=== PATIENT | male | born 1990 | race Caucasian/White ===

== ENCOUNTER 2020-07-12 19:55 | Emergency (ER) | payer SELFPAY ==
[~2020-07-12] VITALS: Ht 165.1 cm; Wt 54.9 kg
--- NOTE | 2020-07-12 19:55 | NUR ---
PT [facility], PREBOOK. TAKEN TO BED 5. [place] [employer] AT BEDSIDE
--- NOTE | 2020-07-12 19:59 | NUR ---
Dr. Diego examining patient.
[2020-07-12 20:02] VITALS: BP 142/92
--- NOTE | 2020-07-12 20:14 | NUR ---
PT TAKEN TO X-RAY VIA WHEELCHAIR
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
[2020-07-12] MEDS: KETOROLAC 15 MG/ML VIAL IVP ONE (20:36)
[2020-07-12 20:55] VITALS: BP 142/92
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
== END 2020-07-12 20:55 ==
LOC: MED 19:55 → EDBD 19:55 → MED 20:55
DX: S39.012A Strain of muscle, fascia and tendon of lower back, initial encounter (principal); M25.552 Pain in left hip; F10.20 Alcohol dependence, uncomplicated; V89.2XXA Person injured in unspecified motor-vehicle accident, traffic, initial encounter; Y93.89 Activity, other specified; Y92.89 Other specified places as the place of occurrence of the external cause; Y99.8 Other external cause status
CPT/HCPCS: 72110; 72170; 96374; 99284; J1885

== ENCOUNTER 2021-10-23 06:05 | Emergency (ER) | payer SELFPAY ==
[~2021-10-23] VITALS: Ht 165.1 cm; Wt 59.9 kg
[2021-10-23 06:14] VITALS: BP 138/77
--- NOTE | 2021-10-23 06:14 | NUR ---
PT TO A/W TENT FOR EVALUTION.
--- NOTE | 2021-10-23 06:45 | NUR ---
Dr. Landeros examining patient.
[2021-10-23 13:46] VITALS: BP 138/77
--- NOTE | 2021-10-23 13:46 | NUR ---
pt discharged without paperwork.
== END 2021-10-23 13:46 | disposition home or self-care (01) ==
LOC: MED 06:05
DX: B34.9 Viral infection, unspecified (principal); Z20.822 Contact with and (suspected) exposure to COVID-19
CPT/HCPCS: 99281

== ENCOUNTER 2022-07-23 15:03 | Emergency (ER) | payer MEDICAID, OTHER ==
[~2022-07-23] VITALS: Ht 162.6 cm; Wt 56.7 kg
[2022-07-23 15:09] VITALS: BP 135/84
[2022-07-23] MEDS ORDERED: FLUORESCEIN OPTH STRIP 1 MG OP ONE (16:00)
[2022-07-23] MEDS ORDERED: TETRACAINE HCL/PF 0.5% OPTH 4 ML BTL OP ONE (16:00)
[2022-07-23] MEDS ORDERED: HYDROcodone/APAP 5/325 MG 1 TAB TAB PO ONE (16:00)
--- NOTE | 2022-07-23 18:58 | NUR ---
PT AMB TO ER BED 9
[2022-07-23 19:12] LABS: EOSINOPHILS % (AUTO) 0.6 % (0.0-4.0); HEMATOCRIT 32.4 % (36-52); HEMOGLOBIN 10.7 g/dL (12.0-18.0); LYMPHOCYTES # (AUTO) 1.2 K/uL (2.0-11.5); LYMPHOCYTES % (AUTO) 28.3 % (20.5-51.1); MEAN CORPUSCULAR HEMOGLOBIN 27 pg (27-31); MEAN CORPUSCULAR HGB CONC 33 g/dL (33-37); MEAN CORPUSCULAR VOLUME 80.7 fL (80-94); MONOCYTES # (AUTO) 0.5 K/uL (0.8-1.0); MONOCYTES % (AUTO) 12.4 % (1.7-9.3); NEUTROPHILS # (AUTO) 2.5 K/uL (1.8-7.7); NEUTROPHILS % (AUTO) 57.7 % (42.2-75.2); PLATELET COUNT (AUTO) 34 K/uL (140-450); RED BLOOD CELL COUNT(AUTO) 4.02 MIL/uL (4.20-6.10); RED CELL DISTRIBUTION WIDTH 19.2 % (11.6-13.7); WHITE BLOOD COUNT (AUTO) 4.4 K/uL (4.8-10.8)
[2022-07-23 19:24] LABS: PROTHROMBIN TIME 11.9 secs (10.8-13.4)
[2022-07-23] MEDS ORDERED: HYDROcodone/APAP 5/325 MG 1 TAB TAB ONE (19:25)
[2022-07-23] MEDS ORDERED: TETRACAINE HCL/PF 0.5% OPTH 4 ML BTL ONE (19:25)
[2022-07-23] MEDS ORDERED: FLUORESCEIN OPTH STRIP 1 MG ONE (19:25)
[2022-07-23 19:26] LABS: ALBUMIN 3.8 g/dL (3.4-5.0); ANION GAP 15.2 (8-16); CARBON DIOXIDE 29.3 mmol/L (21-32); CREATININE 0.5 mg/dL (0.6-1.3); POTASSIUM 3.5 mmol/L (3.5-5.1); TOTAL BILIRUBIN 1.1 mg/dL (0.0-1.0)
--- NOTE | 2022-07-23 19:45 | NUR ---
32/M BIB SELF C/C CHEN REDNESS ON EYES S/P FALL AT WORK. PER PATIENT PAIN IS 7/10 AND BURNING. PATIENT DENIES VISUAL CHANGES. DENIES CP/N/V/SOB. DENIES PMHX, RX, ALLERGIES.
--- NOTE | 2022-07-23 22:49 | NUR ---
PT APPEARS TO BE RESTING. EQUAL RISE AND FALL OF CHEST WALL. PT ON GRADUATE STUDENT INSTRUCTOR. ALL NEEDS MET AT THIS TIME. BED LOCKED IN LOWEST POSITION, SIDE RAILS X2 FOR SAFETY.
--- NOTE | 2022-07-24 00:28 | NUR ---
report given to lennox seay at [facility]. [phone]
--- NOTE | 2022-07-24 00:33 | NUR ---
[facility] arrived for pt.
--- NOTE | 2022-07-24 00:36 | NUR ---
report given to [facility]
[2022-07-24 00:45] VITALS: BP 112/67
--- NOTE | 2022-07-24 00:45 | NUR ---
Patient to be transferred to [facility]. Is being transferred due to higher level of care. Receiving facility has accepting physician and available space. ER physician has signed transfer form. Patient or responsible green party has agreed to transfer and signed form. Patient belongings inventoried and will be sent with patient. Copy of nursing notes, lab reports, EKG, Physicians Orders and X-rays to be sent with patient. Report called to lennox seay at receiving facility. [facility] service has been called for transfer. ETA is 30-45mins.
== END 2022-07-24 00:45 | disposition short-term general hospital (02) ==
LOC: MED 15:03
DX: S00.93XA Contusion of unspecified part of head, initial encounter (principal); Z20.822 Contact with and (suspected) exposure to COVID-19; D69.6 Thrombocytopenia, unspecified; W18.30XA Fall on same level, unspecified, initial encounter; Y93.89 Activity, other specified; Y92.89 Other specified places as the place of occurrence of the external cause; Y99.8 Other external cause status
CPT/HCPCS: 36415; 70450; 70486; 80053; 85025; 85384; 85610; 85730; 93005; 99285

== ENCOUNTER 2023-08-04 16:56 | Emergency (ER) | payer MEDICAID ==
[~2023-08-04] VITALS: Ht 167.6 cm; Wt 63.5 kg
[2023-08-04 18:08] VITALS: BP 127/76; PULSE 87; RESP 18; TEMP 98.4; O2SAT 98
== END 2023-08-04 19:14 | disposition left against medical advice (07) ==
LOC: MED 16:56
DX: R20.0 Anesthesia of skin (principal); R60.0 Localized edema; Z53.21 Procedure and treatment not carried out due to patient leaving prior to being seen by health care provider
CPT/HCPCS: 99281

== ENCOUNTER 2024-01-05 04:05 | Emergency (ER) | payer MEDICAID, OTHER ==
[~2024-01-05] VITALS: Ht 165.1 cm; Wt 70.3 kg
[2024-01-05 04:12] VITALS: BP 138/87; PULSE 78; RESP 16; TEMP 97.7; O2SAT 98
[2024-01-05] MEDS: LIDOCAINE/EPI 1% 1:100000 20 ML VIAL INJ ONE (05:08)
[2024-01-05] MEDS: BACITRACIN OINT 500 UNITS/GM PKT TP ONE (06:10)
[2024-01-05 08:00] VITALS: BP 142/84; PULSE 83; RESP 20; TEMP 97.5; O2SAT 97
[2024-01-05] MEDS: IBUPROFEN 600 MG TAB PO ONE (08:30)
== END 2024-01-05 11:46 | disposition home or self-care (01) ==
LOC: MED 04:05
DX: S61.210A Laceration without foreign body of right index finger without damage to nail, initial encounter (principal); S01.511A Laceration without foreign body of lip, initial encounter; Y04.2XXA Assault by strike against or bumped into by another person, initial encounter; Y93.89 Activity, other specified; Y92.89 Other specified places as the place of occurrence of the external cause; Y99.8 Other external cause status
CPT/HCPCS: 12001; 12011; 99283; J2001